=== PATIENT | female | born 1985 | race African-American/Black ===

== ENCOUNTER 2024-04-28 16:27 | Emergency (ER) | payer MEDICAID, OTHER ==
[~2024-04-28] VITALS: Ht 172.7 cm; Wt 73.0 kg
[~2024-04-28 16:27] MED LIST: METF-416 MT; METO-293 MT
[2024-04-28 16:41] VITALS: O2SAT 100
[2024-04-28] MEDS: SODIUM CHLORIDE 0.9% 1,000 ML IV ONE (17:39)
[2024-04-28 19:00] LABS: CLARITY URINE CLEAR (CLEAR); COLOR URINE YELLOW (YELLOW); GLUCOSE URINE 2+ (NEGATIVE); KETONES URINE NEGATIVE (NEGATIVE); LEUKOCYTE ESTERASE URINE NEGATIVE (NEGATIVE); NITRITE URINE NEGATIVE (NEGATIVE); OCCULT BLOOD URINE NEGATIVE (NEGATIVE); PH URINE 5.5 (4.5-8.0); PROTEIN URINE NEGATIVE (NEGATIVE); SPECIFIC GRAVITY URINE 1.005 (1.005-1.030); UROBILINOGEN URINE 0.2 E.U./dL (0.2-1.0)
[2024-04-28 19:41] LABS: RBC URINE NONE SEEN /hpf (0-2); SQUAMOUS EPITHELIAL CELL URINE FEW /lpf (RARE/1+); WBC URINE NONE SEEN /hpf (0-2)
[2024-04-28 19:42] LABS: BACTERIA URINE TRACE
[2024-04-28 20:24] LABS: BASOPHILS % 0.6 % (0.0-2.0); HEMATOCRIT. 42.6 % (36.0-48.0); LYMPHOCYTES % 30.4 % (20.0-50.0); MEAN CORPUSCULAR HEMOGLOBIN 27.9 pg (28.0-32.0); MEAN CORPUSCULAR HGB CONC 32.9 g/dL (31.0-37.0); MEAN CORPUSCULAR VOLUME 84.9 fL (81.0-99.0); MEAN PLATELET VOLUME 7.8 fl (7.4-10.4); MONOCYTES % 12.8 % (2.0-8.0); NEUTROPHILS % 55.2 % (40.0-76.0); PLATELET 278 x1000/uL (130-400); RED BLOOD CELL COUNT 5.02 mill/uL (4.2-5.4); RED CELL DISTRIBUTION WIDTH 13.5 % (11.6-14.6); WHITE BLOOD COUNT 10.3 x1000/uL (4.5-11.0)
[2024-04-28 20:30] LABS: CHLORIDE 99 mEq/L (98-107); POTASSIUM 3.7 mEq/L (3.5-5.1); SODIUM 133 mEq/L (136-145)
[2024-04-28 20:31] LABS: CALCIUM 9.4 mg/dL (8.7-10.4); CARBON DIOXIDE 28 mEq/L (21-32)
[2024-04-28 20:36] LABS: CREATININE 0.8 mg/dL (0.6-1.0); GLUCOSE 189 mg/dL (70-105); UREA NITROGEN BLOOD 13 mg/dL (9-23)
[2024-04-28 20:57] LABS: BETA HYDROXYBUTYRATE 0.1 mMol/L (0.0-0.3)
[2024-04-28] MEDS ORDERED: METF-414 MT (21:37)
[2024-04-28] MEDS ORDERED: DIPH-1091 MT (21:37)
[2024-04-28] MEDS ORDERED: BACI28.32 TP (21:37)
[2024-04-28] MEDS ORDERED: TOPUD MT (21:37)
[2024-04-28 22:04] VITALS: BP 119/74; PULSE 86; RESP 17; TEMP 36.72516; O2SAT 99
== END 2024-04-28 22:35 | disposition home or self-care (01) ==
LOC: ER 16:27
DX: E11.65 Type 2 diabetes mellitus with hyperglycemia (principal); K52.9 Noninfective gastroenteritis and colitis, unspecified; I10 Essential (primary) hypertension; J45.909 Unspecified asthma, uncomplicated; T21.22XA Burn of second degree of abdominal wall, initial encounter; T30.0 Burn of unspecified body region, unspecified degree; T79.9XXA Unspecified early complication of trauma, initial encounter; Z79.899 Other long term (current) drug therapy; Z88.5 Allergy status to narcotic agent; X08.8XXA Exposure to other specified smoke, fire and flames, initial encounter; Y93.89 Activity, other specified; Y92.89 Other specified places as the place of occurrence of the external cause; Y99.8 Other external cause status
CPT/HCPCS: 99284; 96360; 80048; 81003; 82010; 82962; 85025; 36415; 93005; J7030